=== PATIENT | female | born 1960 | race Caucasian/White ===

== ENCOUNTER 2019-05-13 13:14 | Inpatient (IN) | payer BC ==
[2019-05-13 14:52] VITALS: BMI 18.3
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
[2019-05-13] MEDS ORDERED: P-EPHED 60MG/TRIPROLIDI 2.5MG TABLET PO PRN (17:25)
[2019-05-13] MEDS ORDERED: MAG HYDROX/AL HYDROX/SIMETH 30 ML UNIT-DOSE CUP PO PRN (17:25)
[2019-05-13] MEDS ORDERED: hydrOXYzine PAMOATE 25 MG CAPSULE (FP) PO PRN (17:25)
[2019-05-13] MEDS ORDERED: MAGNESIUM HYDROX 2400MG/30ML ORAL SUSPENSION 30 ML CUP PO PRN (17:25)
[2019-05-13] MEDS ORDERED: ACETAMINOPHEN 325 MG TABLET (FP) PO PRN ×2 (17:25)
[2019-05-13] MEDS ORDERED: MENTHOL/PHENOL 1 EACH UD MM PRN (17:25)
[2019-05-13] MEDS ORDERED: IBUPROFEN 400 MG TABLET (FP) PO PRN (17:25)
[2019-05-13] MEDS ORDERED: MAGNESIUM CITRATE 300 ML BOTTLE PO PRN (17:25)
[2019-05-13] MEDS ORDERED: chlordiazePOXIDE HCL 10 MG CAPSULE PO PRN (17:25)
[2019-05-13] MEDS ORDERED: guaiFENesin 200 MG/10 ML 10 ML UNIT-DOSE CUPS PO PRN (17:25)
[2019-05-13] MEDS ORDERED: METHOCARBAMOL 500 MG TABLET PO PRN (17:25)
[2019-05-13] MEDS ORDERED: ONDANSETRON *ODT* 4 MG TABLET SL PRN (17:25)
[2019-05-13] MEDS ORDERED: BISMUTH SUBSALICYLATE 524 MG/30 ML UD PO PRN (17:25)
[2019-05-13] MEDS ORDERED: DICYCLOMINE HCL 10 MG CAPSULE PO PRN (17:25)
[2019-05-13] MEDS ORDERED: ETRAVIRINE 200 MG TABLET PO SCH (22:00)
[2019-05-13] MEDS: chlordiazePOXIDE HCL 25 MG CAPSULE PO SCH (22:12)
[2019-05-13] MEDS: THIAMINE HCL 100 MG TABLET (FP) PO SCH (22:12)
[2019-05-13] MEDS: GABAPENTIN 100 MG CAPSULE (FP) PO SCH (22:12)
[2019-05-13] MEDS: PHENYTOIN NA EXTENDED 100 MG CAPSULE (FP) PO SCH (22:12)
[2019-05-14] MEDS: GABAPENTIN 100 MG CAPSULE (FP) PO SCH ×3 (05:33→22:33)
[2019-05-14] MEDS: chlordiazePOXIDE HCL 25 MG CAPSULE PO SCH ×3 (05:33→22:33)
[2019-05-14] MEDS ORDERED: DARUNAVIR ETHANOLATE 800 MG TAB PO SCH (10:00)
[2019-05-14] MEDS ORDERED: TENOFOVIR DISOPROXIL FUMARATE PO SCH (10:00)
[2019-05-14] MEDS: PHENYTOIN NA EXTENDED 100 MG CAPSULE (FP) PO SCH ×2 (10:22→22:33)
[2019-05-14] MEDS: PRENATAL VITAMINS W/ FOLIC ACID TABLET (FP) PO SCH (10:22)
--- NOTE | 2019-05-14 11:41 | EKG ---
Test Reason : Blood Pressure : / mmHG Vent. Rate : 066 BPM Atrial Rate : 066 BPM P-R Int : 128 ms QRS Dur : 080 ms QT Int : 428 ms P-R-T Axes : 061 063 058 degrees QTc Int : 448 ms NORMAL SINUS RHYTHM WITH SINUS ARRHYTHMIA NONSPECIFIC ST ABNORMALITY ABNORMAL ECG NO PREVIOUS ECGS AVAILABLE Confirmed by GLO ANTHONY, HUGH ([id number]) on 05/14/2019 11:40:50 AM Referred By: JUAN OROZCO Confirmed By:HUGH CODY MD
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
[2019-05-14 12:48] LABS: ALBUMIN 3.7 g/dl (3.4-5.0); BILIRUBIN,TOTAL 0.6 mg/dL (0.2-1); CALCIUM 9.2 mg/dL (8.5-10.1); CREATININE 0.8 mg/dL (0.55-1.3); POTASSIUM 3.9 mmol/L (3.5-5.1); TOT PROT 9.4 g/dl (6.4-8.2)
[2019-05-14 13:20] LABS: HEMOGLOBIN 16.4 GM/dL (10.7-15.3); MCHC 34.1 g/dl (32.0-36.0); MEAN PLT VOLUME 7.9 fl (7.5-11.1); PLATELET COUNT 229 K/MM3 (134-434); RBC 5.27 M/mm3 (3.60-5.2); RDW 13.5 % (11.6-15.6)
[2019-05-14 13:23] LABS: EPI CELLS 8.4 /HPF (0-5/HPF); HYALINE CASTS 23 /lpf (0-8); PH,URINE 6.5 (5.0-8.0); URINE APPEARANCE CLOUDY; URINE BILIRUBIN NEGATIVE (NEGATIVE); URINE COLOR DK YELLOW; URINE GLUCOSE (UA) NEGATIVE (NEGATIVE); URINE KETONE NEGATIVE (NEGATIVE); URINE LEUK ESTERASE TRACE (NEGATIVE); URINE NITRITE NEGATIVE (NEGATIVE); URINE PROTEIN 2+ (NEGATIVE); URINE RBC 1 /hpf (0-4); URINE WBC 9 /hpf (0-5)
--- NOTE | 2019-05-14 13:49 | PN ---
S CIWA - CIWA Score Nausea/Vomitin Muscle Tremors: 2 Anxiety: 4-Mod. Anxious/Guarded Agitation: 3 Paroxysmal Sweats: 2 Orientation: 0-Oriented Tacttile Disturbances: 1-Very Mild Itch/Numbness Auditory Disturbances: 2-Mild Harshness/Frighten Visual Disturbances: 0-None Headache: 0-None Present CIWA-Ar Total Score: 16 BHS Progress Note (SOAP) Subjective: Anxious, Sweating, Nausea. Objective: PATIENT A & O X 3, OBSERVED AMBULATING ON UNIT UNASSISTED. IN NO ACUTE DISTRESS. 05/14/19 13:47 Vital Signs Temperature 97.8 F 05/14/19 13:44 Pulse Rate 80 05/14/19 13:44 Respiratory Rate 18 05/14/19 13:44 Blood Pressure 122/84 05/14/19 13:44 O2 Sat by Pulse Oximetry (%) Laboratory Tests 05/14/19 05/14/19 05/14/19 07:30 07:30 09:00 WBC 4.0 RBC 5.27 H Hgb 16.4 H Hct 48.0 H MCV 91.0 MCH 31.0 MCHC 34.1 RDW 13.5 Plt Count 229 MPV 7.9 Sodium 138 Potassium 3.9 Chloride 102 Carbon Dioxide 27 Anion Gap 9 BUN 10.0 Creatinine 0.8 Est GFR (CKD-EPI)AfAm 93.53 Est GFR (CKD-EPI)NonAf 80.70 Random Glucose 62 L Calcium 9.2 Total Bilirubin 0.6 AST 84 H ALT 86 H Alkaline Phosphatase 86 Total Protein 9.4 H Albumin 3.7 Urine Color Dk yellow Urine Appearance Cloudy Urine pH 6.5 Ur Specific [place] 1.023 Urine Protein 2+ H Urine Glucose (UA) Negative Urine Ketones Negative Urine Blood Negative Urine Nitrite Negative Urine Bilirubin Negative Urine Urobilinogen 1.0 Ur Leukocyte Esterase Trace Urine WBC (Auto) 9 Urine RBC (Auto) 1 Urine Casts (Auto) 23 U Epithel Cells (Auto) 8.4 Urine Bacteria (Auto) 155.0 LABS NOTED. ADMISSION RPR RESULT PENDING. 05/14/19 13:49 Assessment: 05/14/19 13:47 WITHDRAWAL SYMPTOMS. ELEVATED ALT LEVEL. ELEVATED AST LEVEL. 05/14/19 13:48 Plan: CONTINUE DETOX. INCREASE DAILY PO WATER INTAKE. PATIENT REPORTS HISTORY TAKING BOTH DILANTIN FOR SEIZURE PREVENTION AND OF TAKING VIREAD, INTELENCE, AND PREZISTA FOR TREATMENT OF H.I.V. PER PHARMACIST Dede LIRA OF [facility], POSSIBLE POTENTIALLY DANGEROUS INTERACTION CAN OCCUR BETWEEN DILANTIN AND PREZISTA. PATIENT REPORTS THAT SHE HAS TAKEN ALL OF THE ABOVE-MENTIONED MEDICATION TOGETHER FOR "YEARS" AND THAT SHE BROUGHT ALL MEDICATION WITH HER A TIME OF ADMISSION TO DETOX. PER PHARMACIST BETHANIE AT [facility] ([place], [place]), PATIENT FILLED ALL OF THE ABOVE MEDICATIONS ON SAME DATE EARLIER IN 04/2019. SUPERVISOR FISH PROCESSING ATTEMPTED TO CONTACT OUTSIDE MEDICAL PRESCRIBER OF ALL MEDICATIONS (DR. GILES, [employer], ). HOWEVER, UNABLE TO REACH HIM, ONLY RECEIVED AUTOMATED VOICEMAIL GREETING AND LEFT MESSAGE REQUESTING RETURN TELEPHONE CALL. [employer] [address] DR. JOSEPH CONSULTED ON THIS MATTER. FOR TIME BEING, H.I.V. MEDICATIONS TO BE HELD AND PATIENT ADVISED TO FOLLOW-UP WITH DR. GILES AFTER DISCHARGE FROM DETOX FOR FURTHER MEDICAL EVALUATION. PATIENT VERBALIZED UNDERSTANDING OF RECOMMENDATION AND OF ALL INFORMATION PRESENTED TO HER.
[2019-05-14] MEDS: MELATONIN 5 MG TABLETS PO PRN (22:33)
[2019-05-14] MEDS: THIAMINE HCL 100 MG TABLET (FP) PO SCH (22:33)
[2019-05-15] MEDS: chlordiazePOXIDE 5 MG CAPSULE PO SCH ×3 (06:05→22:24)
[2019-05-15] MEDS: GABAPENTIN 100 MG CAPSULE (FP) PO SCH ×3 (06:06→22:24)
[2019-05-15] MEDS: PHENYTOIN NA EXTENDED 100 MG CAPSULE (FP) PO SCH ×2 (10:05→22:24)
[2019-05-15] MEDS: PRENATAL VITAMINS W/ FOLIC ACID TABLET (FP) PO SCH (10:05)
--- NOTE | 2019-05-15 13:46 | PN ---
[facility] CIWA - CIWA Score Nausea/Vomitin-No Nausea/No Vomiting Muscle Tremors: 3 Anxiety: 3 Agitation: 0-Normal Activity Paroxysmal Sweats: 3 Orientation: 0-Oriented Tacttile Disturbances: 0-None Auditory Disturbances: 0-None Visual Disturbances: 2-Mild Sensitivity Headache: 0-None Present CIWA-Ar Total Score: 11 S Progress Note (SOAP) Subjective: Anxious, Tremors, Sweating. Objective: PATIENT A & O X 3, OBSERVED AMBULATING ON UNIT UNASSISTED. IN NO ACUTE DISTRESS. 05/15/19 13:46 Vital Signs Temperature 97.4 F L 05/15/19 09:24 Pulse Rate 101 H 05/15/19 09:24 Respiratory Rate 18 05/15/19 09:24 Blood Pressure 106/79 05/15/19 09:24 O2 Sat by Pulse Oximetry (%) Laboratory Tests 05/14/19 05/14/19 05/14/19 07:30 07:30 07:30 WBC 4.0 RBC 5.27 H Hgb 16.4 H Hct 48.0 H MCV 91.0 MCH 31.0 MCHC 34.1 RDW 13.5 Plt Count 229 MPV 7.9 Sodium 138 Potassium 3.9 Chloride 102 Carbon Dioxide 27 Anion Gap 9 BUN 10.0 Creatinine 0.8 Est GFR (CKD-EPI)AfAm 93.53 Est GFR (CKD-EPI)NonAf 80.70 Random Glucose 62 L Calcium 9.2 Total Bilirubin 0.6 AST 84 H ALT 86 H Alkaline Phosphatase 86 Total Protein 9.4 H Albumin 3.7 Urine Color Urine Appearance Urine pH Ur Specific [place] Urine Protein Urine Glucose (UA) Urine Ketones Urine Blood Urine Nitrite Urine Bilirubin Urine Urobilinogen Ur Leukocyte Esterase Urine WBC (Auto) Urine RBC (Auto) Urine Casts (Auto) U Pathogenic Cast Auto U Epithel Cells (Auto) Urine Bacteria (Auto) RPR Titer Nonreactive 05/14/19 09:00 WBC RBC Hgb Hct MCV MCH MCHC RDW Plt Count MPV Sodium Potassium Chloride Carbon Dioxide Anion Gap BUN Creatinine Est GFR (CKD-EPI)AfAm Est GFR (CKD-EPI)NonAf Random Glucose Calcium Total Bilirubin AST ALT Alkaline Phosphatase Total Protein Albumin Urine Color Dk yellow Urine Appearance Cloudy Urine pH 6.5 Ur Specific [place] 1.023 Urine Protein 2+ H Urine Glucose (UA) Negative Urine Ketones Negative Urine Blood Negative Urine Nitrite Negative Urine Bilirubin Negative Urine Urobilinogen 1.0 Ur Leukocyte Esterase Trace Urine WBC (Auto) 9 Urine RBC (Auto) 1 Urine Casts (Auto) 23 U Pathogenic Cast Auto None seen U Epithel Cells (Auto) 8.4 Urine Bacteria (Auto) 155.0 RPR Titer LABS NOTED. Assessment: 05/15/19 13:48 WITHDRAWAL SYMPTOMS. ELEVATED AST LEVEL. ELEVATED ALT LEVEL. Plan: CONTINUE DETOX. INCREASE DAILY PO WATER INTAKE. TRAFFIC SERGEANT ATTEMPTED TO CONTACT PATIENT'S REPORTED MEDICAL PROVIDER DR. Vesta GILES ). 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
[2019-05-15] MEDS: THIAMINE HCL 100 MG TABLET (FP) PO SCH (22:24)
[2019-05-15] MEDS: MELATONIN 5 MG TABLETS PO PRN (22:25)
[2019-05-16] MEDS ORDERED: chlordiazePOXIDE HCL 10 MG CAPSULE PO PRN
[2019-05-16] MEDS: GABAPENTIN 100 MG CAPSULE (FP) PO SCH ×3 (06:10→22:16)
[2019-05-16] MEDS: chlordiazePOXIDE HCL 10 MG CAPSULE PO SCH ×3 (07:21→22:16)
[2019-05-16] MEDS: PHENYTOIN NA EXTENDED 100 MG CAPSULE (FP) PO SCH ×2 (10:26→22:16)
[2019-05-16] MEDS: PRENATAL VITAMINS W/ FOLIC ACID TABLET (FP) PO SCH (10:26)
--- NOTE | 2019-05-16 13:00 | PN ---
S CIWA - CIWA Score Nausea/Vomitin-No Nausea/No Vomiting Muscle Tremors: 3 Anxiety: 3 Agitation: 0-Normal Activity Paroxysmal Sweats: 1-Minimal Palms Moist Orientation: 0-Oriented Tacttile Disturbances: 1-Very Mild Itch/Numbness Auditory Disturbances: 0-None Visual Disturbances: 1-Very Mild Sensitivity Headache: 0-None Present CIWA-Ar Total Score: 9 BHS Progress Note (SOAP) Subjective: Anxious, Tremors. Objective: PATIENT A & O X 3. IN NO ACUTE DISTRESS. 05/16/19 12:56 Vital Signs Temperature 97.2 F L 05/16/19 09:14 Pulse Rate 91 H 05/16/19 09:14 Respiratory Rate 16 05/16/19 09:14 Blood Pressure 111/85 05/16/19 09:14 O2 Sat by Pulse Oximetry (%) Laboratory Tests 05/14/19 05/14/19 05/14/19 07:30 07:30 07:30 WBC 4.0 RBC 5.27 H Hgb 16.4 H Hct 48.0 H MCV 91.0 MCH 31.0 MCHC 34.1 RDW 13.5 Plt Count 229 MPV 7.9 Sodium 138 Potassium 3.9 Chloride 102 Carbon Dioxide 27 Anion Gap 9 BUN 10.0 Creatinine 0.8 Est GFR (CKD-EPI)AfAm 93.53 Est GFR (CKD-EPI)NonAf 80.70 Random Glucose 62 L Calcium 9.2 Total Bilirubin 0.6 AST 84 H ALT 86 H Alkaline Phosphatase 86 Total Protein 9.4 H Albumin 3.7 Urine Color Urine Appearance Urine pH Ur Specific [place] Urine Protein Urine Glucose (UA) Urine Ketones Urine Blood Urine Nitrite Urine Bilirubin Urine Urobilinogen Ur Leukocyte Esterase Urine WBC (Auto) Urine RBC (Auto) Urine Casts (Auto) U Pathogenic Cast Auto U Epithel Cells (Auto) Urine Bacteria (Auto) RPR Titer Nonreactive 05/14/19 09:00 WBC RBC Hgb Hct MCV MCH MCHC RDW Plt Count MPV Sodium Potassium Chloride Carbon Dioxide Anion Gap BUN Creatinine Est GFR (CKD-EPI)AfAm Est GFR (CKD-EPI)NonAf Random Glucose Calcium Total Bilirubin AST ALT Alkaline Phosphatase Total Protein Albumin Urine Color Dk yellow Urine Appearance Cloudy Urine pH 6.5 Ur Specific [place] 1.023 Urine Protein 2+ H Urine Glucose (UA) Negative Urine Ketones Negative Urine Blood Negative Urine Nitrite Negative Urine Bilirubin Negative Urine Urobilinogen 1.0 Ur Leukocyte Esterase Trace Urine WBC (Auto) 9 Urine RBC (Auto) 1 Urine Casts (Auto) 23 U Pathogenic Cast Auto None seen U Epithel Cells (Auto) 8.4 Urine Bacteria (Auto) 155.0 RPR Titer LABS NOTED. Assessment: 05/16/19 12:56 WITHDRAWAL SYMPTOMS. ELEVATED AST LEVEL. ELEVATED ALT LEVEL. Plan: CONTINUE DETOX. PATIENT SCHEDULED FOR D/C FROM DETOX UNIT TOMORROW. PATIENT ADVISED TO FOLLOW-UP AND CONSULT OUTSIDE MEDICAL PROVIDER Vesta GILES SOON POSSIBLE AFTER DISCHARGE FROM DETOX REGARDING CURRENTLY PRESCRIBED H.I.V. MEDICATIONS (CONCURRENTLY WITH DILANTIN) PRIOR TO RESUMING THE H.I.V. MEDICATIONS DUE TO POSSIBLE INTERACTION BETWEEN THE H.I.V. MEDICATION AND THE DILANTIN. PATIENT VERBALIZED UNDERSTANDING OF RECOMMENDATION.
[2019-05-16] MEDS: THIAMINE HCL 100 MG TABLET (FP) PO SCH (22:16)
[2019-05-16] MEDS: MELATONIN 5 MG TABLETS PO PRN (22:16)
[2019-05-17] MEDS ORDERED: chlordiazePOXIDE HCL 10 MG CAPSULE PO ONE (05:00)
[2019-05-17] MEDS: GABAPENTIN 100 MG CAPSULE (FP) PO SCH (06:47)
[2019-05-17 09:15] VITALS: BP 122/84; PULSE 93; TEMP 98.5
--- NOTE | 2019-05-17 09:48 | DS ---
[facility] Detox Discharge Summary Admission Date: 05/13/19 Discharge Date: 05/17/19 - History Present History: Alcohol Dependence Additional Comments: 58 years old female admitted on 05/13/19 for acute alcohol withdrawal sx management doing well with librium detox regimen no complication throughout the detox stay alert oriented x 3 no wheezing clear lung bilaterally abdomen soft none tender extremity full rang of motion denies muscles ache patient prefers return to infectious disease specialist for dilantin level and ART monitoring seen by psychiatrist begin gabapentin and wellbutrin Pertinent Past History: seizure HIV - Physical Exam Results Vital Signs: Vital Signs Temperature 98.5 F 05/17/19 09:15 Pulse Rate 93 H 05/17/19 09:15 Respiratory Rate 20 05/17/19 09:15 Blood Pressure 122/84 05/17/19 09:15 O2 Sat by Pulse Oximetry (%) Pertinent Admission Physical Exam Findings: alcohol withdrawal sx Laboratory Last Values WBC 4.0 K/mm3 (4.0-10.0) 05/14/19 07:30 RBC 5.27 M/mm3 (3.60-5.2) H 05/14/19 07:30 Hgb 16.4 GM/dL (10.7-15.3) H 05/14/19 07:30 Hct 48.0 % (32.4-45.2) H 05/14/19 07:30 MCV 91.0 fl (80-96) 05/14/19 07:30 MCH 31.0 pg (25.7-33.7) 05/14/19 07:30 MCHC 34.1 g/dl (32.0-36.0) 05/14/19 07:30 RDW 13.5 % (11.6-15.6) 05/14/19 07:30 Plt Count 229 K/MM3 (134-434) 05/14/19 07:30 MPV 7.9 fl (7.5-11.1) 05/14/19 07:30 Sodium 138 mmol/L (136-145) 05/14/19 07:30 Potassium 3.9 mmol/L (3.5-5.1) 05/14/19 07:30 Chloride 102 mmol/L (98-107) 05/14/19 07:30 Carbon Dioxide 27 mmol/L (21-32) 05/14/19 07:30 Anion Gap 9 MMOL/L (8-16) 05/14/19 07:30 BUN 10.0 mg/dL (7-18) 05/14/19 07:30 Creatinine 0.8 mg/dL (0.55-1.3) 05/14/19 07:30 Est GFR (CKD-EPI)AfAm 93.53 05/14/19 07:30 Est GFR (CKD-EPI)NonAf 80.70 05/14/19 07:30 Random Glucose 62 mg/dL (74-106) L 05/14/19 07:30 Calcium 9.2 mg/dL (8.5-10.1) 05/14/19 07:30 Total Bilirubin 0.6 mg/dL (0.2-1) 05/14/19 07:30 AST 84 U/L (15-37) H 05/14/19 07:30 ALT 86 U/L (13-61) H 05/14/19 07:30 Alkaline Phosphatase 86 U/L (45-117) 05/14/19 07:30 Total Protein 9.4 g/dl (6.4-8.2) H 05/14/19 07:30 Albumin 3.7 g/dl (3.4-5.0) 05/14/19 07:30 Urine Color Dk yellow 05/14/19 09:00 Urine Appearance Cloudy 05/14/19 09:00 Urine pH 6.5 (5.0-8.0) 05/14/19 09:00 Ur Specific [place] 1.023 (1.010-1.035) 05/14/19 09:00 Urine Protein 2+ (NEGATIVE) H 05/14/19 09:00 Urine Glucose (UA) Negative (NEGATIVE) 05/14/19 09:00 Urine Ketones Negative (NEGATIVE) 05/14/19 09:00 Urine Blood Negative (NEGATIVE) 05/14/19 09:00 Urine Nitrite Negative (NEGATIVE) 05/14/19 09:00 Urine Bilirubin Negative (NEGATIVE) 05/14/19 09:00 Urine Urobilinogen 1.0 mg/dL (0.2-1.0) 05/14/19 09:00 Ur Leukocyte Esterase Trace (NEGATIVE) 05/14/19 09:00 Urine WBC (Auto) 9 /hpf (0-5) 05/14/19 09:00 Urine RBC (Auto) 1 /hpf (0-4) 05/14/19 09:00 Urine Casts (Auto) 23 /lpf (0-8) 05/14/19 09:00 U Pathogenic Cast Auto None seen /lpf (NEGATIVE) 05/14/19 09:00 U Epithel Cells (Auto) 8.4 /HPF (0-5/HPF) 05/14/19 09:00 Urine Bacteria (Auto) 155.0 /hpf (NEGATIVE) 05/14/19 09:00 RPR Titer Nonreactive (NONREACTIVE) 05/14/19 07:30 lab noted - Treatment Hospital Course: Detox Protocol Followed, Detoxed Safely, Responded well, Discharged Condition Good, Rehab Referral Accepted Patient has Accepted a Rehab Referral to: [facility] - Medication Discharge Medications: Ambulatory Orders Darunavir Ethanolate [Prezista -] 800 mg PO DAILY 05/13/19 Etravirine [Intelence -] 200 mg PO BID 05/13/19 Gabapentin 100 mg PO TID 05/13/19 Tenofovir Disoproxil Fumarate [Viread] 150 mg PO DAILY 05/13/19 Phenytoin Sodium Extended 100 mg PO BID #60 capsule 05/17/19 - Diagnosis (1) Substance induced mood disorder Current Visit: Yes Status: Suspected (2) Positive PPD Current Visit: Yes Status: Resolved (3) Alcohol dependence with uncomplicated withdrawal Current Visit: Yes Status: Acute (4) HIV (human immunodeficiency virus infection) Current Visit: Yes Status: Chronic Qualifiers: HIV symptom status: asymptomatic Qualified Code(s): Z21 - Asymptomatic human immunodeficiency virus [HIV] infection status (5) Seizure disorder Current Visit: Yes Status: Chronic - AMA Did Patient Leave Against Medical Advice: No CIWA Score - CIWA Score Nausea/Vomitin-No Nausea/No Vomiting Muscle Tremors: 1-None Visible, but [place] Anxiety: 2 Agitation: 0-Normal Activity Paroxysmal Sweats: 1-Minimal Palms Moist Orientation: 0-Oriented Tacttile Disturbances: 0-None Auditory Disturbances: 0-None Visual Disturbances: 1-Very Mild Sensitivity Headache: 0-None Present CIWA-Ar Total Score: 5
== END 2019-05-17 10:09 | disposition home or self-care (01) | DRG 775 ==
LOC: YASAS 13:14 → Y3N 17:48
PROVIDERS: ADMIT Surgery; ATTEND Surgery
PROC: HZ2ZZZZ Detoxification Services for Substance Abuse Treatment (ICD-10-PCS; principal; 2019-05-13)
DX: F10.230 Alcohol dependence with withdrawal, uncomplicated (principal); F19.10 Other psychoactive substance abuse, uncomplicated; F19.24 Other psychoactive substance dependence with psychoactive substance-induced mood disorder; F39 Unspecified mood [affective] disorder; F31.9 Bipolar disorder, unspecified; Z21 Asymptomatic human immunodeficiency virus [HIV] infection status; E78.00 Pure hypercholesterolemia, unspecified; G40.909 Epilepsy, unspecified, not intractable, without status epilepticus; R76.11 Nonspecific reaction to tuberculin skin test without active tuberculosis; R94.5 Abnormal results of liver function studies; Z86.11 Personal history of tuberculosis; Z91.89 Other specified personal risk factors, not elsewhere classified
CPT/HCPCS: 36415; 71046-TC-FY; 80053; 81003; 85027; 86593; 93005; 93010

== ENCOUNTER 2019-06-12 23:04 | Inpatient (IN) | payer BC ==
[2019-06-12 23:44] VITALS: BMI 17.8
--- NOTE | 2019-06-13 00:41 | HP ---
"CIWA Score Nausea/Vomitin-No Nausea/No Vomiting Muscle Tremors: None Anxiety: 1-Mildly Anxious Agitation: 4-Moderately Restless Paroxysmal Sweats: No Perspiration Orientation: 0-Oriented Tacttile Disturbances: 0-None Auditory Disturbances: 0-None Visual Disturbances: 0-None Headache: 0-None Present CIWA-Ar Total Score: 5 - Admission Criteria OASAS Guidelines: Admission for Medically Managed Detox: Requires at least one of the followin. CIWA greater than 12 2. Seizures within the past 24 hours 3. Delirium tremens within the past 24 hours 4. Hallucinations within the past 24 hours 5. Acute intervention needed for co occurring medical disorder 6. Acute intervention needed for co occurring psychiatric disorder 7. Severe withdrawal that cannot be handled at a lower level of care (continued vomiting, continued diarrhea, abnormal vital signs) requiring intravenous medication and/or fluids 8. Patient presents the following: Acute intervention needed for co-occurring med or psych disorder (Patient has co-occuring HIV disorder and hx seizures) Admission Criteria Met: Admission criteria met Admission ROS S - HPI Chief Complaint: Here for detox from alcohol. What I'm drinking is way too much for me. Allergies/Adverse Reactions: Allergies Allergy/AdvReac Type Severity Reaction Status Date / Time No Known Allergies Allergy Verified 06/12/19 23:35 History of Present Illness: 58 yo present w/ alcohol use disorder seeking detox. Completed detox here at [facility] on 05/17/19. UTox: + BAR JLUIS: 0.0 Previous Dx tests @ [facility] reviewed and include: EKG on 05/13/19: CXray on . RPR on 05/14/19. Alcohol use began at age 18. States current use is 1- 6pk (16 oz beers) daily. States began drinking 2 weeks after last discharge K2/Spice use began at age 54. States last used 06/11/19. Denies nicotine use. Hx seizures. Last seizure 1 month ago. On Dilantin. Denies blackouts, OD's. PMHx: HIV+; COPD; Cough (Completing Z-pack), Seizures; Hep C+; TB (Rx'd) MHHx: Bipolar. Depression. Anxiety. Denies thoughts of harming self or others. Sees a MH Provider. Last saw 1 month ago. SHx: Domiciled. Unemployed. Search Terms: Sharda Vences, 1960 Search Date: 06/13/2019 12:28:00 AM The Drug Utilization Report below displays all of the controlled substance prescriptions, if any, that your patient has filled in the last twelve months. The information displayed on this report is compiled from pharmacy submissions to the Department, and accurately reflects the information as submitted by the pharmacies. This report was requested by: Susi Mills | Reference #: [id number] There are no results for the search terms that you entered. Exam Limitations: No Limitations - Ebola screening Have you traveled outside of the country in the last 21 days: No (N) Have you had contact with anyone from an Ebola affected area: No Do you have a fever: No - Review of Systems Constitutional: No Symptoms Reported EENT: reports: Blurred Vision, Dental Problems (Denies dental pain. Chews and swallows ok.) Respiratory: reports: Cough (x years. Taking Azithromycin. Last dose scheduled for tomorrow) Cardiac: reports: No Symptoms Reported GI: reports: Diarrhea (watery, brownish yellow x today.) : reports: No Symptoms Reported Musculoskeletal: reports: No Symptoms Reported Integumentary: reports: No Symptoms Reported Neuro: reports: No Symptoms reported Endocrine: reports: No Symptoms Reported Hematology: reports: Other (HIV+) Psychiatric: reports: Orientated x3, Agitated, Anxious, Depressed (Denies thoughts of harming self or others.) Patient History - Patient Medical History Hx Anemia: No Hx Asthma: No Hx Chronic Obstructive Pulmonary Disease (COPD): No Hx Cancer: No Hx Cardiac Disorders: No Hx Congestive Heart Failure: No Hx Hypertension: No Hx Hypercholesterolemia: Yes (HX/O NOT MEDS) Hx Pacemaker: No HX Cerebrovascular Accident: No Hx Seizures: Yes Hx Dementia: No Hx Diabetes: No Hx Gastrointestinal Disorders: No Hx Liver Disease: Yes (HEP C NOT TX'ED) Hx Genitourinary Disorders: No Hx Sexually Transmitted Disorders: No Hx Renal Disease (ESRD): No Hx Thyroid Disease: No Hx Human Immunodeficiency Virus (HIV): Yes (1989 ON MEDS) Hx Hepatitis C: Yes (NO TXMNET) Hx Depression: Yes Hx Suicide Attempt: No Hx Bipolar Disorder: Yes Hx Schizophrenia: No - Patient Surgical History Past Surgical History: Yes Hx Neurologic Surgery: No Hx Cataract Extraction: No Hx Cardiac Surgery: No Hx Lung Surgery: No Hx Breast Surgery: No Hx Breast Biopsy: No Hx Abdominal Surgery: No Hx Appendectomy: No Hx Cholecystectomy: No Hx Genitourinary Surgery: No Hx Section: Yes (X1) Hx Orthopedic Surgery: No Other Surgical History: LEFT GORIN HERNIA REPAIR Anesthesia Reaction: No - PPD History Previous Implant?: No (Hx: Active TB ) Documented Results: Positive w/o proof Implanted On Prior [facility] Admission?: No PPD to be Administered?: No - Reproductive History Patient : No - Smoking Cessation Smoking history: Never smoked Have you smoked in the past 12 months: No Hx Chewing Tobacco Use: No Initiated information on smoking cessation: No - Substance & Tx. History Hx Alcohol Use: Yes Hx Substance Use: Yes Substance Use Type: Alcohol, Marijuana (K2/Spice) Hx Substance Use Treatment: Yes (detox; rehab, ) - Substances abused Alcohol Substance route: Oral Frequency: Daily Amount used: 1/6pack Age of first use: 18 Date of last use: 06/12/19 K2/Spice Substance route: Smoking Frequency: Daily Amount used: $10 Age of first use: 54 Date of last use: 06/11/19 Admission Physical Exam BHS - Vital Signs Vital Signs: Vital Signs - 24 hr 06/12/19 23:30 Temperature 98.1 F Pulse Rate 84 Respiratory 16 Rate Blood Pressure 133/96 - Physical General Appearance: Yes: Mild Distress, Anxious HEENTM: Yes: EOMI (Jerking movement of eyes upon lateral gaze), Hearing grossly Normal, Normocephalic, Normal Voice, XUAN, Pharynx Normal Respiratory: Yes: Lungs Clear (Pulse Ox = 99 %), No Respiratory Distress, Other (Spontaneous cough, noisy and non-productive.) Neck: Yes: No masses,lesions,Nodules, Supple Breast: Yes: Breast Exam Deferred Cardiology: Yes: Regular Rhythm, Regular Rate, S1, S2 Abdominal: Yes: Non Tender, Soft, Other (Very slight umbilical bulge when sitting. Flattens when supine. Abd soft, non-tender.) Genitourinary: Yes: Within Normal Limits Back: Yes: Normal Inspection Musculoskeletal: Yes: full range of Motion, Gait Steady Extremities: Yes: Normal Capillary Refill, Normal Range of Motion Neurological: Yes: fingerprint technician II-XII NML intact (Jerking movement of eyes upon lateral gaze), Fully Oriented, Alert, Motor Strength 5/5, Normal Response Integumentary: Yes: Normal Color, Warm Lymphatic: Yes: Within Normal Limits - Diagnostic (1) History of hepatitis C Current Visit: No Status: Chronic (2) History of COPD Current Visit: Yes Status: Chronic (3) Alcohol dependence with uncomplicated withdrawal Current Visit: Yes Status: Acute (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 (5) HIV (human immunodeficiency virus infection) Current Visit: Yes Status: Chronic Qualifiers: HIV symptom status: unspecified Qualified Code(s): B20 - Human immunodeficiency virus [HIV] disease (6) History of TB (tuberculosis) Current Visit: No Status: Chronic (7) Seizure disorder Current Visit: Yes Status: Chronic (8) Nystagmus Current Visit: Yes Status: Acute Cleared for Admission S - Detox or Rehab [facility] Level of Care: Medically Managed Detox Regimen/Protocol: Librium Claeared for Rehab Admission: No Breathalyzer - Breathalyzer Breathalyzer: 0 Urine Drug Screen - Test Device Lot number: [id number] Expiration date: 02/20/21 - Control Is test valid?: Yes - Results Drug screen NEGATIVE: No Urine drug screen results: BAR-Barbiturates Inpatient Rehab Admission - Rehab Decision to Admit Inpatient rehab admission?: No"
[2019-06-13] MEDS ORDERED: MAG HYDROX/AL HYDROX/SIMETH 30 ML UNIT-DOSE CUP PO PRN (01:39)
[2019-06-13] MEDS ORDERED: IBUPROFEN 400 MG TABLET (FP) PO PRN (01:39)
[2019-06-13] MEDS ORDERED: MENTHOL/PHENOL 1 EACH UD MM PRN (01:39)
[2019-06-13] MEDS ORDERED: chlordiazePOXIDE HCL 10 MG CAPSULE PO PRN (01:39)
[2019-06-13] MEDS ORDERED: MAGNESIUM CITRATE 300 ML BOTTLE PO PRN (01:39)
[2019-06-13] MEDS ORDERED: ACETAMINOPHEN 325 MG TABLET (FP) PO PRN ×2 (01:39)
[2019-06-13] MEDS ORDERED: METHOCARBAMOL 500 MG TABLET PO PRN (01:39)
[2019-06-13] MEDS ORDERED: MAGNESIUM HYDROX 2400MG/30ML ORAL SUSPENSION 30 ML CUP PO PRN (01:39)
[2019-06-13] MEDS ORDERED: LOPERAMIDE HCL 2 MG CAPSULE PO PRN (01:41)
[2019-06-13] MEDS: chlordiazePOXIDE HCL 25 MG CAPSULE PO SCH ×3 (06:11→22:00)
[2019-06-13] MEDS ORDERED: TENOFOVIR DISOPROXIL FUMARATE PO SCH (10:00)
[2019-06-13] MEDS ORDERED: PATIENT'S OWN MEDICATION (NON-FORMULARY) (Darunavir Ethanolate [Prezista -] 800 MG) PO SCH (10:00)
[2019-06-13] MEDS ORDERED: PATIENT'S OWN MEDICATION (NON-FORMULARY) (Etravirine [Intelence -] 200 MG) PO SCH (10:00)
[2019-06-13] MEDS: PRENATAL VITAMINS W/ FOLIC ACID TABLET (FP) PO SCH (10:53)
[2019-06-13] MEDS: PHENYTOIN NA EXTENDED 100 MG CAPSULE (FP) PO SCH ×2 (10:53→22:24)
[2019-06-13 11:20] LABS: ALBUMIN 3.7 g/dl (3.4-5.0); BILIRUBIN,TOTAL 0.2 mg/dL (0.2-1); BLOOD UREA NITROGEN 12.2 mg/dL (7-18); CALCIUM 8.8 mg/dL (8.5-10.1); CREATININE 0.8 mg/dL (0.55-1.3); POTASSIUM 3.8 mmol/L (3.5-5.1)
[2019-06-13 11:26] LABS: HEMATOCRIT 45.4 % (32.4-45.2); HEMOGLOBIN 15.6 GM/dL (10.7-15.3); MCH 31.7 pg (25.7-33.7); MCHC 34.3 g/dl (32.0-36.0); MEAN CELL VOLUME 92.5 fl (80-96); MEAN PLT VOLUME 8.3 fl (7.5-11.1); PLATELET COUNT 236 K/MM3 (134-434); RBC 4.91 M/mm3 (3.60-5.2); RDW 13.8 % (11.6-15.6)
[2019-06-13] MEDS ORDERED: AZITHROMYCIN PO SCH (12:00)
--- NOTE | 2019-06-13 13:14 | PN ---
[facility] CIWA - CIWA Score Nausea/Vomitin-No Nausea/No Vomiting Muscle Tremors: 2 Anxiety: 4-Mod. Anxious/Guarded Agitation: 3 Paroxysmal Sweats: No Perspiration Orientation: 0-Oriented Tacttile Disturbances: 0-None Auditory Disturbances: 0-None Visual Disturbances: 1-Very Mild Sensitivity Headache: 0-None Present CIWA-Ar Total Score: 10 S Progress Note (SOAP) Subjective: Anxious, Tremors, Fatigue. Objective: PATIENT A & O X 3, OBSERVED AMBULATING ON DETOX UNIT UNASSISTED. IN NO ACUTE DISTRESS. 06/13/19 13:23 Vital Signs Temperature 98.3 F 06/13/19 09:45 Pulse Rate 77 06/13/19 09:45 Respiratory Rate 18 06/13/19 09:45 Blood Pressure 127/82 06/13/19 09:45 O2 Sat by Pulse Oximetry (%) Laboratory Tests 06/13/19 06/13/19 08:00 08:00 WBC 5.0 RBC 4.91 Hgb 15.6 H Hct 45.4 H MCV 92.5 MCH 31.7 MCHC 34.3 RDW 13.8 Plt Count 236 MPV 8.3 Sodium 136 Potassium 3.8 Chloride 105 Carbon Dioxide 26 Anion Gap 6 L BUN 12.2 Creatinine 0.8 Est GFR (CKD-EPI)AfAm 93.53 Est GFR (CKD-EPI)NonAf 80.70 Random Glucose 76 Calcium 8.8 Total Bilirubin 0.2 AST 36 ALT 47 Alkaline Phosphatase 89 Total Protein 9.0 H Albumin 3.7 LABS NOTED. Assessment: 06/13/19 13:15 WITHDRAWAL SYMPTOMS. Plan: CONTINUE DETOX. [facility] PHARMACIST [place] NOTES THAT MEDICATION NORVIR SHOULD BE GIVEN ALONG WITH OTHER THREE MEDICATIONS (INTELENCE, VIREAD, PREZISTA) THAT PATIENT IS CURRENTLY PRESCRIBED FOR TREATMENT OF H.I.V. NORVIR NOT LISTED IN PATIENT'S HOME MEDICATION LIST. WHEN ASKED PATIENT STATED THAT SHE THINKS THAT HAS BEEN PRESCRIBED NORVIR IN PAST FOR TREATMENT OF H.I.V., BUT WAS NOT COMPLETELY CERTAIN. PATIENT SERVICE REP UNABLE TO GET IN CONTACT VIA TELEPHONE (X 3) WITH PATIENT'S PHARMACY ([facility], [place], [place]). WILL ATTEMPT TO CONTACT AGAIN ON NEXT BUSINESS DAY (06/15/2019) TO INQUIRE FURTHER AT THAT TIME. NORVIR NOT TO BE ORDERED FOR TIME BEING UNTIL CONFIRMATION OF PREVIOUS PRESCRIPTION RECEIVED FROM PATIENT'S PHARMACY.
[2019-06-13] MEDS: THIAMINE HCL 100 MG TABLET (FP) PO SCH (22:24)
[2019-06-13] MEDS: MELATONIN 5 MG TABLETS PO PRN (22:24)
[2019-06-14] MEDS: chlordiazePOXIDE 5 MG CAPSULE PO SCH ×3 (05:21→22:24)
[2019-06-14] MEDS: PRENATAL VITAMINS W/ FOLIC ACID TABLET (FP) PO SCH (10:07)
[2019-06-14] MEDS: PHENYTOIN NA EXTENDED 100 MG CAPSULE (FP) PO SCH ×2 (10:07→22:25)
--- NOTE | 2019-06-14 16:19 | PN ---
[facility] CIWA - CIWA Score Nausea/Vomitin-Mild Nausea/No Vomiting Muscle Tremors: 1-None Visible, but [place] Anxiety: 2 Agitation: 1-Slight > Activity Paroxysmal Sweats: No Perspiration Orientation: 0-Oriented Tacttile Disturbances: 0-None Auditory Disturbances: 0-None Visual Disturbances: 0-None Headache: 0-None Present CIWA-Ar Total Score: 5 S Progress Note (SOAP) Subjective: doing well with librium detox regimen taking dilantin for seizure dilantin serum level ordered Objective: 06/14/19 16:19 Vital Signs Temperature 97.1 F L 06/14/19 13:15 Pulse Rate 87 06/14/19 13:15 Respiratory Rate 18 06/14/19 13:15 Blood Pressure 119/90 06/14/19 13:15 O2 Sat by Pulse Oximetry (%) Laboratory Last Values WBC 5.0 K/mm3 (4.0-10.0) 06/13/19 08:00 RBC 4.91 M/mm3 (3.60-5.2) 06/13/19 08:00 Hgb 15.6 GM/dL (10.7-15.3) H 06/13/19 08:00 Hct 45.4 % (32.4-45.2) H 06/13/19 08:00 MCV 92.5 fl (80-96) 06/13/19 08:00 MCH 31.7 pg (25.7-33.7) 06/13/19 08:00 MCHC 34.3 g/dl (32.0-36.0) 06/13/19 08:00 RDW 13.8 % (11.6-15.6) 06/13/19 08:00 Plt Count 236 K/MM3 (134-434) 06/13/19 08:00 MPV 8.3 fl (7.5-11.1) 06/13/19 08:00 Sodium 136 mmol/L (136-145) 06/13/19 08:00 Potassium 3.8 mmol/L (3.5-5.1) 06/13/19 08:00 Chloride 105 mmol/L (98-107) 06/13/19 08:00 Carbon Dioxide 26 mmol/L (21-32) 06/13/19 08:00 Anion Gap 6 MMOL/L (8-16) L 06/13/19 08:00 BUN 12.2 mg/dL (7-18) 06/13/19 08:00 Creatinine 0.8 mg/dL (0.55-1.3) 06/13/19 08:00 Est GFR (CKD-EPI)AfAm 93.53 06/13/19 08:00 Est GFR (CKD-EPI)NonAf 80.70 06/13/19 08:00 Random Glucose 76 mg/dL (74-106) 06/13/19 08:00 Calcium 8.8 mg/dL (8.5-10.1) 06/13/19 08:00 Total Bilirubin 0.2 mg/dL (0.2-1) 06/13/19 08:00 AST 36 U/L (15-37) 06/13/19 08:00 ALT 47 U/L (13-61) 06/13/19 08:00 Alkaline Phosphatase 89 U/L (45-117) 06/13/19 08:00 Total Protein 9.0 g/dl (6.4-8.2) H 06/13/19 08:00 Albumin 3.7 g/dl (3.4-5.0) 06/13/19 08:00 lab noted Assessment: 06/14/19 16:19 alcohol withdrawal sx Plan: continue librium detox regimen
[2019-06-14] MEDS: THIAMINE HCL 100 MG TABLET (FP) PO SCH (22:25)
[2019-06-14] MEDS: MELATONIN 5 MG TABLETS PO PRN (22:25)
[2019-06-15] MEDS ORDERED: chlordiazePOXIDE HCL 10 MG CAPSULE PO PRN
[2019-06-15] MEDS: chlordiazePOXIDE HCL 10 MG CAPSULE PO SCH ×3 (05:56→22:12)
--- NOTE | 2019-06-15 10:37 | PN ---
S CIWA - CIWA Score Nausea/Vomitin-No Nausea/No Vomiting Muscle Tremors: 1-None Visible, but [place] Anxiety: 2 Agitation: 0-Normal Activity Paroxysmal Sweats: No Perspiration Orientation: 0-Oriented Tacttile Disturbances: 0-None Auditory Disturbances: 0-None Visual Disturbances: 0-None Headache: 0-None Present CIWA-Ar Total Score: 3 BHS Progress Note (SOAP) Subjective: doing well with librium detox regimen less tremor ambulating on hallway social with peers in day room discuss aftercare with staff prefers realization Objective: 06/15/19 10:43 Vital Signs Temperature 97.7 F 06/15/19 09:36 Pulse Rate 96 H 06/15/19 09:36 Respiratory Rate 20 06/15/19 09:36 Blood Pressure 122/91 06/15/19 09:36 O2 Sat by Pulse Oximetry (%) Laboratory Last Values WBC 5.0 K/mm3 (4.0-10.0) 06/13/19 08:00 RBC 4.91 M/mm3 (3.60-5.2) 06/13/19 08:00 Hgb 15.6 GM/dL (10.7-15.3) H 06/13/19 08:00 Hct 45.4 % (32.4-45.2) H 06/13/19 08:00 MCV 92.5 fl (80-96) 06/13/19 08:00 MCH 31.7 pg (25.7-33.7) 06/13/19 08:00 MCHC 34.3 g/dl (32.0-36.0) 06/13/19 08:00 RDW 13.8 % (11.6-15.6) 06/13/19 08:00 Plt Count 236 K/MM3 (134-434) 06/13/19 08:00 MPV 8.3 fl (7.5-11.1) 06/13/19 08:00 Sodium 136 mmol/L (136-145) 06/13/19 08:00 Potassium 3.8 mmol/L (3.5-5.1) 06/13/19 08:00 Chloride 105 mmol/L (98-107) 06/13/19 08:00 Carbon Dioxide 26 mmol/L (21-32) 06/13/19 08:00 Anion Gap 6 MMOL/L (8-16) L 06/13/19 08:00 BUN 12.2 mg/dL (7-18) 06/13/19 08:00 Creatinine 0.8 mg/dL (0.55-1.3) 06/13/19 08:00 Est GFR (CKD-EPI)AfAm 93.53 06/13/19 08:00 Est GFR (CKD-EPI)NonAf 80.70 06/13/19 08:00 Random Glucose 76 mg/dL (74-106) 06/13/19 08:00 Calcium 8.8 mg/dL (8.5-10.1) 06/13/19 08:00 Total Bilirubin 0.2 mg/dL (0.2-1) 06/13/19 08:00 AST 36 U/L (15-37) 06/13/19 08:00 ALT 47 U/L (13-61) 06/13/19 08:00 Alkaline Phosphatase 89 U/L (45-117) 06/13/19 08:00 Total Protein 9.0 g/dl (6.4-8.2) H 06/13/19 08:00 Albumin 3.7 g/dl (3.4-5.0) 06/13/19 08:00 lab noted Assessment: 06/15/19 10:43 alcohol withdrawal sx Plan: continue librium detox regimen
[2019-06-15] MEDS: PRENATAL VITAMINS W/ FOLIC ACID TABLET (FP) PO SCH (10:50)
[2019-06-15] MEDS: PHENYTOIN NA EXTENDED 100 MG CAPSULE (FP) PO SCH ×2 (10:50→22:12)
[2019-06-15] MEDS: MELATONIN 5 MG TABLETS PO PRN (22:12)
[2019-06-15] MEDS: THIAMINE HCL 100 MG TABLET (FP) PO SCH (22:12)
[2019-06-16] MEDS ORDERED: chlordiazePOXIDE HCL 10 MG CAPSULE PO ONE (05:00)
[2019-06-16 06:21] VITALS: BP 103/78; PULSE 84; TEMP 97.9
--- NOTE | 2019-06-16 09:43 | DS ---
[facility] Detox Discharge Summary Admission Date: 06/13/19 Discharge Date: 06/16/19 - History Present History: Alcohol Dependence Additional Comments: 58 years old female 2nd patient [facility] admission since discharged admitted on 06/12/19 for alcohol withdrawal sx management did well with librium detox regiment no complication through out the detox stay patient avoid aftercare discuss along with referral stated that AA for support beneficial to her alcohol recovery abdomen soft no rebound tenderness extremities full range of motion Pertinent Past History: seizure hiv encourage smoking cessation - Physical Exam Results Vital Signs: Vital Signs Temperature 97.9 F 06/16/19 06:21 Pulse Rate 84 06/16/19 06:21 Respiratory Rate 16 06/16/19 06:21 Blood Pressure 103/78 06/16/19 06:21 O2 Sat by Pulse Oximetry (%) Pertinent Admission Physical Exam Findings: alcohol withdrawal sx Laboratory Last Values WBC 5.0 K/mm3 (4.0-10.0) 06/13/19 08:00 RBC 4.91 M/mm3 (3.60-5.2) 06/13/19 08:00 Hgb 15.6 GM/dL (10.7-15.3) H 06/13/19 08:00 Hct 45.4 % (32.4-45.2) H 06/13/19 08:00 MCV 92.5 fl (80-96) 06/13/19 08:00 MCH 31.7 pg (25.7-33.7) 06/13/19 08:00 MCHC 34.3 g/dl (32.0-36.0) 06/13/19 08:00 RDW 13.8 % (11.6-15.6) 06/13/19 08:00 Plt Count 236 K/MM3 (134-434) 06/13/19 08:00 MPV 8.3 fl (7.5-11.1) 06/13/19 08:00 Sodium 136 mmol/L (136-145) 06/13/19 08:00 Potassium 3.8 mmol/L (3.5-5.1) 06/13/19 08:00 Chloride 105 mmol/L (98-107) 06/13/19 08:00 Carbon Dioxide 26 mmol/L (21-32) 06/13/19 08:00 Anion Gap 6 MMOL/L (8-16) L 06/13/19 08:00 BUN 12.2 mg/dL (7-18) 06/13/19 08:00 Creatinine 0.8 mg/dL (0.55-1.3) 06/13/19 08:00 Est GFR (CKD-EPI)AfAm 93.53 06/13/19 08:00 Est GFR (CKD-EPI)NonAf 80.70 06/13/19 08:00 Random Glucose 76 mg/dL (74-106) 06/13/19 08:00 Calcium 8.8 mg/dL (8.5-10.1) 06/13/19 08:00 Total Bilirubin 0.2 mg/dL (0.2-1) 06/13/19 08:00 AST 36 U/L (15-37) 06/13/19 08:00 ALT 47 U/L (13-61) 06/13/19 08:00 Alkaline Phosphatase 89 U/L (45-117) 06/13/19 08:00 Total Protein 9.0 g/dl (6.4-8.2) H 06/13/19 08:00 Albumin 3.7 g/dl (3.4-5.0) 06/13/19 08:00 Phenytoin 8.2 06/15/19 08:30 lab noted patient is willing to return to HIV clinic for follow up as well as neurology for seizure patient agrees to follow up with cardiac arrhythemia denies dizziness no shortness of breath skin warm dry steady gait speech clearly and coherently - Treatment Hospital Course: Detox Protocol Followed, Detoxed Safely, Responded well, Discharged Condition Good, Rehab Referral Accepted Patient has Accepted a Rehab Referral to: community support approach - Medication Discharge Medications: Ambulatory Orders Darunavir Ethanolate [Prezista -] 800 mg PO DAILY 05/13/19 Etravirine [Intelence -] 200 mg PO BID 05/13/19 Tenofovir Disoproxil Fumarate [Viread] 150 mg PO DAILY 05/13/19 Azithromycin [Zithromax 250mg Tablets -] 250 mg PO DAILY #30 tablet 06/15/19 Phenytoin Sodium Extended 100 mg PO BID #60 capsule 06/15/19 - Diagnosis (1) Alcohol dependence with uncomplicated withdrawal Current Visit: Yes Status: Acute (2) HIV (human immunodeficiency virus infection) Current Visit: Yes Status: Chronic Qualifiers: HIV symptom status: asymptomatic Qualified Code(s): Z21 - Asymptomatic human immunodeficiency virus [HIV] infection status (3) Seizure disorder Current Visit: Yes Status: Chronic (4) History of hepatitis C Current Visit: Yes Status: Chronic (5) Substance induced mood disorder Current Visit: Yes Status: Suspected (6) Positive PPD Current Visit: Yes Status: Resolved - AMA Did Patient Leave Against Medical Advice: No CIWA Score - CIWA Score Nausea/Vomitin-No Nausea/No Vomiting Muscle Tremors: None Anxiety: 1-Mildly Anxious Agitation: 0-Normal Activity Paroxysmal Sweats: No Perspiration Orientation: 0-Oriented Tacttile Disturbances: 0-None Auditory Disturbances: 0-None Visual Disturbances: 0-None Headache: 0-None Present CIWA-Ar Total Score: 1
[2019-06-16] MEDS: PHENYTOIN NA EXTENDED 100 MG CAPSULE (FP) PO SCH (11:17)
[2019-06-16] MEDS: PRENATAL VITAMINS W/ FOLIC ACID TABLET (FP) PO SCH (11:17)
== END 2019-06-16 09:29 | disposition home or self-care (01) | DRG 775 ==
LOC: YASAS 23:04 → Y3N 06-13 02:09
PROVIDERS: ADMIT Surgery; ATTEND Surgery
PROC: HZ2ZZZZ Detoxification Services for Substance Abuse Treatment (ICD-10-PCS; principal; 2019-06-13)
DX: F10.230 Alcohol dependence with withdrawal, uncomplicated (principal); F12.10 Cannabis abuse, uncomplicated; F19.24 Other psychoactive substance dependence with psychoactive substance-induced mood disorder; Z21 Asymptomatic human immunodeficiency virus [HIV] infection status; G40.909 Epilepsy, unspecified, not intractable, without status epilepticus; B18.2 Chronic viral hepatitis C; H55.00 Unspecified nystagmus; Z86.11 Personal history of tuberculosis
CPT/HCPCS: 36415; 80053; 80185; 85027